=== PATIENT | male | born 1965 | race Caucasian/White ===

== ENCOUNTER → 2024-05-06 11:54 | Outpatient (REF) | payer BC, SELFPAY | LOC: RCS 11:54 | PROVIDERS: ATTENDING PHYSICIAN Podiatrist Foot & Ankle Surgery; FAMILY PHYSICIAN Family Medicine | DX: M20.11 Hallux valgus (acquired), right foot (principal); M20.41 Other hammer toe(s) (acquired), right foot; Z01.818 Encounter for other preprocedural examination | CPT/HCPCS: 93005 ==